=== PATIENT | female | born 1955 | race American Indian/Alaskan Native ===

== ENCOUNTER 2019-09-11 07:25 | Observation (INO) | payer BC ==
--- NOTE | 2019-09-11 08:06 | XRay Report ---
CHEST 2 VIEWS INDICATION / CLINICAL INFORMATION: Chest Pain. COMPARISON: None available. FINDINGS: SUPPORT DEVICES: None. HEART / MEDIASTINUM: Heart is upper normal size. LUNGS / PLEURA: No significant pulmonary or pleural abnormality. No pneumothorax. ADDITIONAL FINDINGS: No significant additional findings. IMPRESSION: 1. No acute findings. Signer Name: Farnaz Fuller MD Signed: 09/11/2019 8:01 AM Workstation Name: [id number]
[2019-09-11 08:09] LABS: Basophils % (Auto) 0.5 % (0.0-1.8); Eosinophils # (Auto) 0.3 K/mm3 (0.0-0.4); Eosinophils % (Auto) 3.5 % (0.0-4.3); Hematocrit 37.9 % (30.3-42.9); Hemoglobin 12.3 gm/dl (10.1-14.3); Lymphocytes # (Auto) 2.6 K/mm3 (1.2-5.4); Lymphocytes % (Auto) 32.9 % (13.4-35.0); Mean Corpuscular HGB Conc 33 % (30-34); Mean Corpuscular Volume 92 fl (79-97); Monocytes # (Auto) 0.4 K/mm3 (0.0-0.8); Platelet Count 221 K/mm3 (140-440); Red Blood Count 4.11 M/mm3 (3.65-5.03); Red Cell Distribution Width 14.9 % (13.2-15.2)
[2019-09-11 08:30] LABS: BUN/Creatinine Ratio 15; Blood Urea Nitrogen 12 mg/dL (7-17); Hemolysis Index 0
[2019-09-11] MEDS ORDERED: diphenhydrAMINE 25 MG CAP PO ONE (08:57)
[2019-09-11] MEDS ORDERED: ACETAMINOPHEN 325 MG/10.15 ML ORAL LIQD UNIT DOSE PO ONE (08:57)
--- NOTE | 2019-09-11 09:00 | Emergency Department Report ---
ED General Adult HPI - General Chief complaint: Chest Pain Stated complaint: CHEST PAIN/THROAT SORE Time Seen by Provider: 09/11/19 08:55 Source: patient Mode of arrival: Ambulatory Limitations: No Limitations - History of Present Illness Initial comments: 63-year-old -[place] female with a past medical history of hypertension presents to the emergency room complaining of chest pain since 5 AM. Patient reports chills but no fever no nausea no vomiting. Patient imaged nasal congestion sore throat and postnasal drip. Patient denies any ear pain. She does admit to body aches and cough. Patient reports that she takes lisinopril 20 mg daily. -: This morning Time: 05:00 Location: chest Radiation: non-radiation Severity scale (0 -10): 7 Quality: aching Consistency: intermittent Improves with: none Associated Symptoms: cough, fever/chills (on fever but chills). denies: headaches, loss of appetite, nausea/vomiting, shortness of breath, syncope Treatments Prior to Arrival: none - Related Data Home Medications Medication Instructions Recorded Confirmed Last Taken Amlodipine Besylate [Norvasc] 5 mg PO DAILY 09/11/19 09/11/19 1 Day Ago ~09/10/19 Gabapentin 100 mg PO DAILY 09/11/19 09/11/19 1 Day Ago ~09/10/19 Lisinopril [Zestril TAB] 40 mg PO QDAY 09/11/19 09/11/19 1 Day Ago ~09/10/19 Multivit-Min/Iron/Folic Acid/K 1 tab PO DAILY 09/11/19 09/11/19 1 Day Ago [Adults Multivitamin Tablet] ~09/10/19 hydroCHLOROthiazide [HCTZ] 12.5 mg PO QDAY 09/11/19 09/11/19 1 Day Ago ~09/10/19 Previous Rx's Medication Instructions Recorded Last Taken Type AtorvaSTATin [Lipitor] 40 mg PO QHS #30 tablet 09/13/19 Unknown Rx Pantoprazole [Protonix TAB] 40 mg PO DAILY #30 tablet 09/13/19 Unknown Rx Allergies Allergy/AdvReac Type Severity Reaction Status Date / Time No Known Allergies Allergy Verified 09/11/19 12:46 ED Review of Systems ROS: Stated complaint: CHEST PAIN/THROAT SORE Other details as noted in HPI Comment: All other systems reviewed and negative Constitutional: chills. denies: diaphoresis, fever, weakness ENT: throat pain, congestion Respiratory: cough Cardiovascular: chest pain (with cough) Endocrine: no symptoms reported Gastrointestinal: denies: abdominal pain, nausea, diarrhea Genitourinary: denies: urgency, dysuria, discharge ED Past Medical Hx - Past Medical History Hx Hypertension: Yes - Surgical History Additional Surgical History: CSECTIONS - Social History Smoking Status: Never Smoker Substance Use Type: Alcohol - Medications Home Medications: Home Medications Medication Instructions Recorded Confirmed Last Taken Type Amlodipine Besylate [Norvasc] 5 mg PO DAILY 09/11/19 09/11/19 1 Day Ago History ~09/10/19 Gabapentin 100 mg PO DAILY 09/11/19 09/11/19 1 Day Ago History ~09/10/19 Lisinopril [Zestril TAB] 40 mg PO QDAY 09/11/19 09/11/19 1 Day Ago History ~09/10/19 Multivit-Min/Iron/Folic Acid/K 1 tab PO DAILY 09/11/19 09/11/19 1 Day Ago History [Adults Multivitamin Tablet] ~09/10/19 hydroCHLOROthiazide [HCTZ] 12.5 mg PO QDAY 09/11/19 09/11/19 1 Day Ago History ~09/10/19 AtorvaSTATin [Lipitor] 40 mg PO QHS #30 tablet 09/13/19 Unknown Rx Pantoprazole [Protonix TAB] 40 mg PO DAILY #30 tablet 09/13/19 Unknown Rx ED Physical Exam - General Limitations: No Limitations General appearance: alert, in no apparent distress - Head Head exam: Present: atraumatic, normocephalic - Eye Eye exam: Present: normal appearance - ENT ENT exam: Present: mucous membranes dry - Neck Neck exam: Present: normal inspection - Respiratory Respiratory exam: Present: normal lung sounds bilaterally. Absent: respiratory distress, chest wall tenderness - Cardiovascular Cardiovascular Exam: Present: regular rate, normal rhythm. Absent: systolic murmur, diastolic murmur, rubs, gallop - GI/Abdominal GI/Abdominal exam: Present: soft, normal bowel sounds. Absent: distended, tenderness - Extremities Exam Extremities exam: Present: normal inspection - Back Exam Back exam: Present: normal inspection - Neurological Exam Neurological exam: Present: alert, oriented X3. Absent: normal gait - Psychiatric Psychiatric exam: Present: normal affect, normal mood - Skin Skin exam: Present: warm, dry, intact, normal color. Absent: rash ED Course Vital Signs 09/11/19 09/11/19 09/11/19 07:26 08:26 08:31 Temperature 97.7 F Pulse Rate 63 65 Respiratory 22 16 19 Rate Blood Pressure 159/64 143/49 O2 Sat by Pulse 98 99 Oximetry 09/11/19 09/11/19 09/11/19 09:01 09:31 10:01 Temperature Pulse Rate 86 57 L 63 Respiratory 20 16 13 Rate Blood Pressure 146/58 134/50 119/56 O2 Sat by Pulse 95 94 93 Oximetry 09/11/19 09/11/19 09/11/19 10:30 11:01 11:31 Temperature Pulse Rate 70 58 L 74 Respiratory 14 15 16 Rate Blood Pressure 142/63 145/57 135/53 O2 Sat by Pulse 96 96 96 Oximetry 09/11/19 09/11/19 09/11/19 12:01 12:31 13:01 Temperature Pulse Rate 70 76 98 H Respiratory 16 19 17 Rate Blood Pressure 144/63 173/62 145/60 O2 Sat by Pulse 99 97 97 Oximetry 09/11/19 09/11/19 09/11/19 13:31 14:01 14:21 Temperature Pulse Rate 76 81 72 Respiratory 24 19 16 Rate Blood Pressure 160/60 163/68 168/76 O2 Sat by Pulse 92 93 94 Oximetry 09/11/19 09/11/19 14:31 14:41 Temperature Pulse Rate 71 66 Respiratory 22 17 Rate Blood Pressure 132/59 132/59 O2 Sat by Pulse 93 93 Oximetry ED Medical Decision Making - Lab Data Result diagrams: 09/11/19 07:58 09/11/19 07:58 - Radiology Data Radiology results: report reviewed Patient: NORMA GRANADOS MR#: [id number] : 1955 Acct:[id number] Age/Sex: 63 / F ADM Date: 09/11/19 Loc: ED Attending Dr: Ordering Physician: ED MD PASTORA Date of Service: 09/11/19 Procedure(s): XR chest routine 2V Accession Number(s): [id number] cc: ED MD PASTORA Fluoro Time In Minutes: CHEST 2 VIEWS INDICATION / CLINICAL INFORMATION: Chest Pain. COMPARISON: None available. FINDINGS: SUPPORT DEVICES: None. HEART / MEDIASTINUM: Heart is upper normal size. LUNGS / PLEURA: No significant pulmonary or pleural abnormality. No pneumothorax. ADDITIONAL FINDINGS: No significant additional findings. IMPRESSION: 1. No acute findings. Signer Name: Farnaz Fuller MD Signed: 09/11/2019 8:01 AM Workstation Name: [id number] Transcribed By: DT Dictated By: Norris Fuller MD Electronically Authenticated By: Norris Fuller MD Signed Date/Time: 09/11/19800 DD/ 0 TD/TT: - Medical Decision Making 63-year-old -[place] female with a past medical history of hypertension presents to the emergency room complaining of chest pain since 5 AM. Patient reports chills but no fever no nausea no vomiting. Patient imaged nasal congestion sore throat and postnasal drip. Patient denies any ear pain. She does admit to body aches and cough. Patient reports that she takes lisinopril 20 mg daily. X-ray shows no acute abnormalities, CBC CMP within normal limits. Negative troponin. One troponin pending. Patient be given acetaminophen and Benadryl for symptoms. Critical care attestation.: If time is entered above; I have spent that time in minutes in the direct care of this critically ill patient, excluding procedure time. ED Disposition Clinical Impression: Atypical chest pain Disposition: OP ADMIT IP TO THIS HOSP Is pt being admited?: Yes Does the pt Need Aspirin: Yes Condition: Stable
[2019-09-11 12:23] LABS: INR 1.04 (0.87-1.13)
[2019-09-11 12:24] LABS: Partial Thromboplastin Time 31.5 Sec. (24.2-36.6)
--- NOTE | 2019-09-11 12:47 | History and Physical Report ---
History of Present Illness Date of admission: 09/11/19 11:44 Chief complaint: My chest hurts, I feel short of breath, and my legs are swollen History of present illness: 63 YO Female with MO, Obesity Hypoventilation Syndrome, HTN presents to ED for evaluation. Pt states that she has experienced pain in her chest over the past 1 day. Pt reports that pain awoke her from sleep around 0500hrs. Pt states that pain isn 7/10, substernal, achy, crushing in nature, dull, intermittent, worsened with exertion, relieved with rest. Pt acknowledges shortness of breath, decreased exercise tolerance, Dypsnea on Exertion, Dypsnea at rest, leg edema, Orthopnea/PND. Pt transported to [facility] via private vehicle. Pt seen and evaluated in ED and found to have symptoms consistent with CHF Decompensation, Angina. Pt admitted to telemetry. Cardiology team consulted in ED. Pt denies fever, chills, productive cough, syncope, hemoptysis, BRBPR, Individual/Family history of DVT/PE/Bleeding/Blood Clotting Disorders, Skin Rash, or recent ill contacts. No prior admission for review. All listed medication reconciled at time of admission. Past History Past Medical History: other (see hpi) Past Surgical History: Social history: , lives with family. denies: smoking, alcohol abuse, prescription drug abuse Family history: diabetes, hypertension Medications and Allergies Allergies Allergy/AdvReac Type Severity Reaction Status Date / Time No Known Allergies Allergy Verified 09/11/19 12:46 Active Meds: Active Medications Aspirin (Ecotrin) 325 mg PO QDAY GINNY Sodium Chloride (Sodium Chloride Flush Syringe 10 Ml) 10 ml IV PRN PRN PRN Reason: LINE FLUSH Review of Systems Constitutional: no weight loss, no weight gain, no fever, no chills Ears, nose, mouth and throat: no ear pain, no ear discharge, no tinnitis, no decreased hearing, no nose pain Breasts: no change in shape, no swelling, no mass Cardiovascular: chest pain, orthopnea, shortness of breath, dyspnea on exertion, paroxysmal nocturnal dyspnea, leg edema, decreased exercise tolerance, no rapid/irregular heart beat, no syncope Respiratory: no cough, no cough with sputum, no excessive sputum, no hemoptysis Gastrointestinal: no nausea, no vomiting, no diarrhea, no constipation, no change in bowel habits Genitourinary Female: no pelvic pain, no flank pain, no menorrhagia, no dysuria, no urinary frequency, no urgency Rectal: no pain, no incontinence, no bleeding Musculoskeletal: no neck pain, no shooting arm pain, no arm numbness/tingling, no low back pain, no shooting leg pain Integumentary: no rash, no pruritis, no redness, no sores, no wounds Neurological: no transient paralysis, no paralysis, no weakness, no parathesias, no numbness, no tingling Psychiatric: no memory loss, no change in sleep habits, no sleep disturbances, no insomnia, no hypersomnia, no change in appetite, no change in libido Endocrine: no cold intolerance, no heat intolerance, no polyphagia, no polydipsi a, no polyuria, no nocturia, no excessive sweating Hematologic/Lymphatic: no easy bruising, no easy bleeding, no lymphadenopathy, no lymphedema Allergic/Immunologic: no urticaria, no allergic rhinitis, no persistent infections, no anaphylaxis, no angioedema Exam - Constitutional Vitals: Temp Pulse Resp BP Pulse Ox 97.7 F 74 16 135/53 96 09/11/19 07:26 09/11/19 11:31 09/11/19 11:31 09/11/19 11:31 09/11/19 11:31 General appearance: Present: mild distress, obese - EENT Eyes: Present: PERRL ENT: hearing intact, clear oral mucosa - Neck Neck: Present: supple, normal ROM - Respiratory Respiratory effort: normal Respiratory: bilateral: diminished, rhonchi - Cardiovascular Heart Sounds: Present: S1 & S2. Absent: rub, click - Extremities Extremities: pulses symmetrical Extremity abnormal: edema Peripheral Pulses: within normal limits - Abdominal General gastrointestinal: Present: soft, non-tender, non-distended, normal bowel sounds Female genitourinary: Present: normal - Integumentary Integumentary: Present: clear, warm, dry - Musculoskeletal Musculoskeletal: gait normal, strength equal bilaterally - Psychiatric Psychiatric: appropriate mood/affect, intact judgment & insight - Neurologic Neurologic: CNII-XII intact, moves all extremities Results - Labs CBC & Chem 7: 09/11/19 07:58 09/11/19 07:58 Labs: Abnormal lab results 11/03/19 11/03/19 Range/Units 07:58 11:47 D-Dimer 245.94 H (0-234) ng/mlDDU Chloride 108.0 H (98-107) mmol/L Assessment and Plan - Patient Problems (1) CHF (congestive heart failure) Current Visit: Yes Status: Acute Qualifiers: Heart failure type: systolic Heart failure chronicity: acute Qualified Code(s): I50.21 - Acute systolic (congestive) heart failure Plan to address problem: Admit to telemetry, Cardiology consulted, thyroid panel, magnesium level, strict I/O, daily weight, diuresis, Chest x ray, Echo, afterload reduction, bnp, d dimer, supplemental oxygen, pulse oximetry. (2) Angina at rest Current Visit: Yes Status: Acute Plan to address problem: Serial cardiac enzymes, ekg, stress test, cardiology consulted in ED. (3) Obesity hypoventilation syndrome Current Visit: Yes Status: Acute Plan to address problem: supplemental oxygen, nebulizer therapy, NIPPV as clinically indicated, pulse oximetry (4) HTN (hypertension) Current Visit: Yes Status: Acute Qualifiers: Hypertension type: essential hypertension Qualified Code(s): I10 - Essential (primary) hypertension Plan to address problem: Monitor uop q shift, continue medical management (5) DVT prophylaxis Current Visit: Yes Status: Acute Plan to address problem: SCD to BLE while in bed, prophylactic lovenox
[2019-09-11] MEDS ORDERED: NITROGLYCERIN 0.4 MG TAB SUBL SL PRN (13:30)
[2019-09-11] MEDS ORDERED: MORPHINE 2 MG/1 ML INJ IV PRN (13:32)
[2019-09-11] MEDS ORDERED: oxyCODONE /ACETAMINOPHEN 5-325MG TAB PO PRN (13:32)
[2019-09-11] MEDS ORDERED: LORazepam 2 MG/ML VIAL ONE (13:52)
[2019-09-11] MEDS ORDERED: PANTOPRAZOLE 20 MG TAB PO ONE (13:53)
[2019-09-11] MEDS: PANTOPRAZOLE 40 MG TAB PO SCH ×2 (14:11→21:25)
[2019-09-11] MEDS ORDERED: LORazepam 2 MG/ML VIAL IV ONE (14:32)
[2019-09-11 16:19] LABS: Chol/HDL Ratio 2.68 %
[2019-09-11 16:31] LABS: Free T4 (Free Thyroxine) 0.85 ng/dL (0.76-1.46)
[2019-09-11] MEDS: ENOXAPARIN 40 MG/0.4 ML INJ SUB-Q SCH (21:25)
[2019-09-12] MEDS ORDERED: REGADENOSON 0.4 MG/5 ML INJ IV ONE (07:11)
--- NOTE | 2019-09-12 11:54 | Progress Note ---
Assessment and Plan Assessment and plan: Acute systolic HF. Cardiology consult pending Chest pain. Cardiac isoenzymes. Follow-up stress test. Obesity hypoventilation syndrome. Continue supplemental oxygen, nebulizer treatment and BiPAP as clinically indicated. Hypertension. Continue antihypertensive medications. History Interval history: No new issues overnight Hospitalist Physical - Constitutional Vitals: Temp Pulse Resp BP Pulse Ox 98.6 F 76 18 141/69 95 09/12/19 07:54 09/12/19 07:00 09/12/19 07:54 09/12/19 10:22 09/12/19 06:00 General appearance: Present: mild distress, obese - EENT Eyes: Present: PERRL, EOM intact ENT: hearing intact, clear oral mucosa, dentition normal - Neck Neck: Present: supple, normal ROM - Respiratory Respiratory effort: normal Respiratory: bilateral: CTA - Cardiovascular Rhythm: regular Heart Sounds: Present: S1 & S2. Absent: gallop, rub - Extremities Extremities: no ischemia, No edema, Full ROM - Abdominal General gastrointestinal: soft, non-tender, non-distended, normal bowel sounds - Integumentary Integumentary: Present: clear, warm, dry - Neurologic Neurologic: CNII-XII intact, moves all extremities Results - Labs CBC & Chem 7: 09/11/19 07:58 09/11/19 07:58 Labs: Laboratory Last Values WBC 7.9 K/mm3 (4.5-11.0) 09/11/19 07:58 RBC 4.11 M/mm3 (3.65-5.03) 09/11/19 07:58 Hgb 12.3 gm/dl (10.1-14.3) 09/11/19 07:58 Hct 37.9 % (30.3-42.9) 09/11/19 07:58 MCV 92 fl (79-97) 09/11/19 07:58 MCH 30 pg (28-32) 09/11/19 07:58 MCHC 33 % (30-34) 09/11/19 07:58 RDW 14.9 % (13.2-15.2) 09/11/19 07:58 Plt Count 221 K/mm3 (140-440) 09/11/19 07:58 Lymph % (Auto) 32.9 % (13.4-35.0) 09/11/19 07:58 [place] % (Auto) 5.0 % (0.0-7.3) 09/11/19 07:58 Eos % (Auto) 3.5 % (0.0-4.3) 09/11/19 07:58 Baso % (Auto) 0.5 % (0.0-1.8) 09/11/19 07:58 Lymph # 2.6 K/mm3 (1.2-5.4) 09/11/19 07:58 [place] # 0.4 K/mm3 (0.0-0.8) 09/11/19 07:58 Eos # 0.3 K/mm3 (0.0-0.4) 09/11/19 07:58 Baso # 0.0 K/mm3 (0.0-0.1) 09/11/19 07:58 Seg Neutrophils % 58.1 % (40.0-70.0) 09/11/19 07:58 Seg Neutrophils # 4.6 K/mm3 (1.8-7.7) 09/11/19 07:58 PT 13.5 Sec. (12.2-14.9) 09/11/19 11:47 INR 1.04 (0.87-1.13) 09/11/19 11:47 APTT 31.5 Sec. (24.2-36.6) 09/11/19 11:47 D-Dimer 245.94 ng/mlDDU (0-234) H 09/11/19 11:47 D-Dimer < 135.00 ng/mlDDU (0-234) 09/11/19 11:47 Sodium 143 mmol/L (137-145) 09/11/19 07:58 Potassium 4.1 mmol/L (3.6-5.0) 09/11/19 07:58 Chloride 108.0 mmol/L (98-107) H 09/11/19 07:58 Carbon Dioxide 23 mmol/L (22-30) 09/11/19 07:58 Anion Gap 16 mmol/L 09/11/19 07:58 BUN 12 mg/dL (7-17) 09/11/19 07:58 Creatinine 0.8 mg/dL (0.7-1.2) 09/11/19 07:58 Estimated GFR > 60 ml/min 09/11/19 07:58 BUN/Creatinine Ratio 15 % 09/11/19 07:58 Glucose 86 mg/dL (65-100) 09/11/19 07:58 POC Glucose 98 (70-105) 09/12/19 08:01 Calcium 9.0 mg/dL (8.4-10.2) 09/11/19 07:58 Troponin T < 0.010 ng/mL (0.00-0.029) 09/11/19 17:55 NT-Pro-B Natriuret Pep 91.90 pg/mL (0-900) 09/11/19 15:54 Triglycerides 129 mg/dL (2-149) 09/11/19 15:54 Cholesterol 185 mg/dL (50-199) 09/11/19 15:54 LDL Cholesterol Direct 98 mg/dL (50-130) 09/11/19 15:54 HDL Cholesterol 69 mg/dL (40-59) H 09/11/19 15:54 Cholesterol/HDL Ratio 2.68 % 09/11/19 15:54 TSH 1.890 mlU/mL (0.270-4.200) 09/11/19 15:54 Free T4 0.85 ng/dL (0.76-1.46) 09/11/19 15:54 Active Medications - Current Medications Current Medications: Generic Name Dose Route Start Last Admin Trade Name Freq PRN Reason Stop Dose Admin Aspirin 325 mg 09/12/19 10:00 Ecotrin PO QDAY [facility] Atorvastatin Calcium 40 mg 09/11/19 22:00 09/11/19 21:25 Lipitor PO 40 mg QHS [facility] Administration Enoxaparin Sodium 40 mg 09/11/19 22:00 09/11/19 21:25 Enoxaparin SUB-Q 40 mg QDAY@2200 [facility] Administration Morphine Sulfate 2 mg 09/11/19 13:32 09/11/19 18:03 Morphine IV 2 mg Q4H PRN Administration Pain , Severe (7-10) Nitroglycerin 0.4 mg 09/11/19 13:30 Nitrostat SL Q5M PRN Chest Pain Oxycodone/Acetaminophen 1 tab 09/11/19 13:32 Percocet 5/325 PO Q6H PRN Pain, Moderate (4-6) Pantoprazole Sodium 40 mg 09/11/19 13:00 09/11/19 21:25 Protonix PO 40 mg BID GINNY Administration Sodium Chloride 10 ml 09/11/19 12:43 Sodium Chloride Flush Syringe 10 Ml IV PRN PRN LINE FLUSH
[2019-09-12] MEDS: PANTOPRAZOLE 40 MG TAB PO SCH ×2 (11:57→21:54)
[2019-09-12] MEDS: ASPIRIN EC 325 MG TAB PO SCH (11:57)
--- NOTE | 2019-09-12 13:06 | Consultation ---
History of Present Illness Consult date: 09/12/19 Consult reason: chest pain History of present illness: 63-year-old woman with morbid obesity, chronic hypertension and chronic tobacco use, is admitted to the hospital with atypical chest pain. She describes chest pain that woke her up from sleep, otherwise poorly characterized, nonexertional. There was no associated shortness of breath or dizziness or palpitations. There is no lower extremity edema or orthopnea or PND. No prior significant cardiac history. ECG is normal sinus rhythm, normal ECG. Serial cardiac isoenzymes were normal. Today, she underwent a Lexiscan thallium stress test, the results of which are pending. Past History Past Medical History: COPD, hypertension, other (tobacco abuse) Past Surgical History: Social history: , lives with family. denies: smoking, alcohol abuse, prescription drug abuse Family history: diabetes, hypertension Medications and Allergies Allergies Allergy/AdvReac Type Severity Reaction Status Date / Time No Known Allergies Allergy Verified 09/11/19 12:46 Home Medications Medication Instructions Recorded Confirmed Last Taken Type Amlodipine Besylate [Norvasc] 5 mg PO DAILY 09/11/19 09/11/19 1 Day Ago History ~09/10/19 Gabapentin 100 mg PO DAILY 09/11/19 09/11/19 1 Day Ago History ~09/10/19 Lisinopril [Zestril TAB] 40 mg PO QDAY 09/11/19 09/11/19 1 Day Ago History ~09/10/19 Multivit-Min/Iron/Folic Acid/K 1 tab PO DAILY 09/11/19 09/11/19 1 Day Ago History [Adults Multivitamin Tablet] ~09/10/19 hydroCHLOROthiazide [Hctz] 12.5 mg PO QDAY 09/11/19 09/11/19 1 Day Ago History ~09/10/19 Active Meds: Active Medications Aspirin (Ecotrin) 325 mg PO QDAY [facility] Last Admin: 09/12/19 11:57 Dose: 325 mg Documented by: Atorvastatin Calcium (Lipitor) 40 mg PO QHS [facility] Last Admin: 09/11/19 21:25 Dose: 40 mg Documented by: Enoxaparin Sodium (Enoxaparin) 40 mg SUB-Q QDAY@2200 [facility] Last Admin: 09/11/19 21:25 Dose: 40 mg Documented by: Morphine Sulfate (Morphine) 2 mg IV Q4H PRN PRN Reason: Pain , Severe (7-10) Last Admin: 09/11/19 18:03 Dose: 2 mg Documented by: Nitroglycerin (Nitrostat) 0.4 mg SL Q5M PRN PRN Reason: Chest Pain Oxycodone/Acetaminophen (Percocet 5/325) 1 tab PO Q6H PRN PRN Reason: Pain, Moderate (4-6) Last Admin: 09/12/19 11:57 Dose: 1 tab Documented by: Pantoprazole Sodium (Protonix) 40 mg PO BID GINNY Last Admin: 09/12/19 11:57 Dose: 40 mg Documented by: Sodium Chloride (Sodium Chloride Flush Syringe 10 Ml) 10 ml IV PRN PRN PRN Reason: LINE FLUSH Review of Systems Cardiovascular: chest pain, no orthopnea, no palpitations, no rapid/irregular heart beat, no edema, no syncope, no lightheadedness, no shortness of breath Physical Examination Vital Signs Temp Pulse Resp BP Pulse Ox 97.7 F 63 22 159/64 98 09/11/19 07:26 09/11/19 07:26 09/11/19 07:26 09/11/19 07:26 09/11/19 07:26 General appearance: no acute distress HEENT: Positive: PERRL Neck: Positive: neck supple Cardiac: Positive: Reg Rate and Rhythm Lungs: Positive: Decreased Breath Sounds Neuro: Positive: Grossly Intact Abdomen: Positive: Soft Female genitourinary: deferred Skin: Positive: Clear Extremities: Absent: edema Results 09/11/19 07:58 09/11/19 07:58 Lipids 09/11/19 Range/Units 15:54 Triglycerides 129 (2-149) mg/dL Cholesterol 185 (50-199) mg/dL HDL Cholesterol 69 H (40-59) mg/dL Cholesterol/HDL Ratio 2.68 % EKG interpretations - Telemetry EKG Rhythm: Sinus Rhythm Assessment and Plan - Patient Problems (1) Atypical chest pain Current Visit: Yes Status: Acute Plan to address problem: 63-year-old woman with obesity and multiple risk factors, presents with atypical chest pain. ECG and cardiac enzymes are normal. Lexiscan thallium stress test has been completed, results are pending.
[2019-09-12] MEDS: ENOXAPARIN 40 MG/0.4 ML INJ SUB-Q SCH (21:54)
--- NOTE | 2019-09-13 00:56 | Treadmill Report ---
THALLIUM STRESS TEST LEFT VENTRICLE: Left ventricular chamber size is within normal spread. Perfusion study demonstrates homogeneous uptake of the tracer in all segments, no significant defects identified. Gated analysis demonstrates normal left ventricular systolic function, ejection fraction 63%. CONCLUSION: Normal myocardial perfusion study. JOB# [id number] CA/NTS
[2019-09-13 04:17] VITALS: BP 129/48
[2019-09-13] MEDS: ASPIRIN EC 325 MG TAB PO SCH (10:42)
[2019-09-13] MEDS: PANTOPRAZOLE 40 MG TAB PO SCH (10:42)
--- NOTE | 2019-09-13 11:04 | Discharge Summary ---
Providers - Providers Date of Admission: 09/11/19 11:44 Date of discharge: 09/13/19 Attending physician: YOSEF LINARES MD 09/11/19 Consult to Cardiac Rehabilitation [CONS] Routine Reason For Exam: Phase I 09/11/19 12:45 Consult to Cardiology [CONS] Routine Consulting Provider: ULISES MONTENEGRO Reason For Exam: angina Primary care physician: HAND DRAWER IN Hospitalization Reason for admission: Chest pain Condition: Stable Hospital course: 63 YO Female with MO, Obesity Hypoventilation Syndrome, HTN presents to ED for evaluation. Pt states that she has experienced pain in her chest over the past 1 day. Pt reports that pain awoke her from sleep around 0500hrs. Pt states that pain isn 7/10, substernal, achy, crushing in nature, dull, intermittent, worsened with exertion, relieved with rest. Pt acknowledges shortness of breath, decreased exercise tolerance, Dypsnea on Exertion, Dypsnea at rest, leg edema, Orthopnea/PND. Pt transported to [facility] via private vehicle. Pt seen and evaluated in ED and found to have symptoms consistent with CHF Decompensation, Angina. Pt admitted to telemetry. Cardiology team consulted in ED. Patient was admitted to the floor and serial troponins were negative, EKG NAF, thallium stress test was done was negative and discharged home in a stable condition. Appropriate medication scripts were given at the time of discharge. Patient advised to continue home medications and have follow-up with primary care physician. Disposition: DC-01 TO HOME OR SELFCARE Time spent for discharge: 32 minutes - Discharge Diagnoses (1) Atypical chest pain Status: Acute (2) HTN (hypertension) Status: Acute Qualifiers: Hypertension type: essential hypertension Qualified Code(s): I10 - Essential (primary) hypertension (3) Obesity hypoventilation syndrome Status: Acute Core Measure Documentation - Palliative Care Palliative Care/ Comfort Measures: Not Applicable - Core Measures Any of the following diagnoses?: none Exam - Physical Exam Narrative exam: Not in cardiopulmonary distress. The patient is morbidly obese. Vital signs as documented. Head exam is unremarkable. No scleral icterus . Neck is without jugular venous distension, thyromegaly, or carotid bruits. Lungs are clear to auscultation. Cardiac exam reveals regular rate and Rhythm. Abdominal exam reveals normal bowel sounds, nontender, no organomegaly. Extremities are nonedematous and both femoral and pedal pulses are normal. STAMP MOUNTER: Alert and oriented 3. No focal weakness. - Constitutional Vitals: Temp Pulse Resp BP Pulse Ox 98.7 F 65 18 129/48 95 09/13/19 03:36 09/13/19 04:00 09/13/19 03:36 09/13/19 03:36 09/13/19 04:00 Plan Activity: no restrictions Weight Bearing Status: Full Weight Bearing Diet: low cholesterol, low salt Follow up with: PRIMARY CARE, [Primary Care Provider] - 7 Days Forms: Work/School Release Form Prescriptions: AtorvaSTATin [Lipitor] 40 mg PO QHS #30 tablet Pantoprazole [Protonix TAB] 40 mg PO DAILY #30 tablet
--- NOTE | 2019-09-13 11:08 | Progress Note ---
Assessment and Plan Atypical chest pain normal myocardial stress thallium test Morbid obesity Chronic hypertension Chronic tobacco use No further cardiac workup indicated. We will sign off. Subjective Date of service: 09/13/19 Interval history: Patient denies chest pain and shortness of breath. Objective Vital Signs Temp Pulse Resp BP BP Pulse Ox 09/13/19 04:00 65 95 09/13/19 03:36 98.7 F 18 129/48 09/12/19 23:45 20 09/12/19 23:10 98.2 F 65 18 146/64 97 09/12/19 20:40 65 09/12/19 19:29 98.3 F 71 18 136/50 94 09/12/19 15:30 98.2 F 78 18 136/74 99 09/12/19 15:00 80 09/12/19 12:57 20 09/12/19 11:57 20 09/12/19 11:48 97.8 F 18 187/67 - Physical Examination General: No Apparent Distress HEENT: Positive: PERRL Neck: Positive: trachea midline Cardiac: Positive: Reg Rate and Rhythm Lungs: Positive: Normal Breath Sounds Neuro: Positive: Grossly Intact Abdomen: Positive: Soft Extremities: Absent: edema
== END 2019-09-13 13:02 | disposition home or self-care (01) ==
LOC: ED 07:25 → INTOOBSV 11:44 → 4A 11:44 → OBSVTOIN 11:44 → 4A 12:49
PROVIDERS: ADMIT Internal Medicine; ATTEND Internal Medicine
DX: I11.0 Hypertensive heart disease with heart failure (principal); I50.21 Acute systolic (congestive) heart failure; I20.9 Angina pectoris, unspecified; E66.2 Morbid (severe) obesity with alveolar hypoventilation; Z68.43 Body mass index [BMI] 50.0-59.9, adult; Z98.891 History of uterine scar from previous surgery; Z79.82 Long term (current) use of aspirin
CPT/HCPCS: 36415; 71046; 78452; 80048; 80061; 82962; 83880; 84439; 84443; 84484; 85025; 85379; 85610; 85730; 93005; 93010; 93017; 94660; 96372; 96374; 96375; 99284; A9270; A9502; G0378; J1650; J2060; J2270; J2785; 96365

== ENCOUNTER 2019-10-14 06:03 | Day surgery (SDC) | payer BC ==
[2019-10-14] MEDS ORDERED: SODIUM CHLORIDE 0.9% 500 ML 500 ML IV SCH (07:00)
[2019-10-14] MEDS ORDERED: ASPIRIN EC 325 MG TAB PO NR (07:00)
[2019-10-14] MEDS ORDERED: ASPIRIN EC 325 MG TAB PO ONE (07:23)
[2019-10-14] MEDS ORDERED: SODIUM CHLORIDE 0.9% 500 ML 500 ML ONE (07:23)
[2019-10-14 08:08] LABS: INR 0.96 (0.87-1.13)
[2019-10-14] MEDS ORDERED: VERAPAMIL 5 MG/2 ML INJ ONE (08:13)
[2019-10-14] MEDS ORDERED: HEPARIN/NS 5000 UNIT/500ML 1,000 ML IR ONE (08:13)
[2019-10-14 08:35] LABS: Basophils % (Auto) 0.5 % (0.0-1.8); Eosinophils # (Auto) 0.2 K/mm3 (0.0-0.4); Eosinophils % (Auto) 2.5 % (0.0-4.3); Hematocrit 37.9 % (30.3-42.9); Hemoglobin 12.3 gm/dl (10.1-14.3); Lymphocytes # (Auto) 2.3 K/mm3 (1.2-5.4); Lymphocytes % (Auto) 30.5 % (13.4-35.0); Mean Corpuscular HGB Conc 33 % (30-34); Mean Corpuscular Volume 92 fl (79-97); Monocytes # (Auto) 0.3 K/mm3 (0.0-0.8); Monocytes % (Auto) 4.4 % (0.0-7.3); Platelet Count 254 K/mm3 (140-440); Red Blood Count 4.12 M/mm3 (3.65-5.03); Red Cell Distribution Width 15.4 % (13.2-15.2)
[2019-10-14 08:41] LABS: BUN/Creatinine Ratio 16; Blood Urea Nitrogen 11 mg/dL (7-17); Calcium 9.2 mg/dL (8.4-10.2); Hemolysis Index 19
[2019-10-14] MEDS: LIDOCAINE (2%) 20 MG/1 ML VIAL 20 ML MDV INFILTRATI ONE ×2 (09:01→09:19)
[2019-10-14] MEDS: fentaNYL 100 MCG/2 ML INJ ONE ×3 (09:01→09:35)
[2019-10-14] MEDS: MIDAZOLAM 2 MG/2 ML INJ ONE ×2 (09:01→09:18)
[2019-10-14] MEDS: NITROGLYCERIN SYRINGE 3 ML ONE ×2 (09:02→09:20)
[2019-10-14] MEDS: HEPARIN 10,000 UNITS/10 ML VIAL ONE ×2 (09:02→09:20)
[2019-10-14] MEDS ORDERED: NITROGLYCERIN 0.4 MG TAB SUBL SL ONE (09:32)
--- NOTE | 2019-10-14 10:09 | Short Stay Summary ---
Short Stay Documentation Date of service: 10/14/19 - History H&P: obtained from office - Allergies and Medications Current Medications: Allergies No Known Allergies Allergy (Verified 09/11/19 12:46) Home Medications Medication Instructions Recorded Confirmed Last Taken Type Amlodipine Besylate [Norvasc] 5 mg PO DAILY 09/11/19 10/13/19 10/13/19 History Gabapentin 100 mg PO DAILY 09/11/19 10/13/19 10/13/19 History Lisinopril [Zestril TAB] 40 mg PO QDAY 09/11/19 10/13/19 10/13/19 History Multivit-Min/Iron/Folic Acid/K 1 tab PO DAILY 09/11/19 10/13/19 10/13/19 History [Adults Multivitamin Tablet] hydroCHLOROthiazide [HCTZ] 12.5 mg PO QDAY 09/11/19 10/13/19 10/13/19 History AtorvaSTATin [Lipitor] 20 mg PO QHS 10/13/19 10/13/19 10/13/19 History Active Medications Sodium Chloride (Nacl 0.9% 500 Ml) 500 mls @ 50 mls/hr IV DIRECT GINNY Stop: 10/14/19 16:59 Last Admin: 10/14/19 08:15 Dose: 50 mls/hr Documented by: - Physical exam General appearance: no acute distress Integumentary: no rash HEENT: Atraumatic Lungs: Clear to auscultation Breasts: deferred Heart: Regular rate Gastrointestinal: normal Female Genitourinary: deferred Rectal Exam: deferred Extremities: no ischemia Neurological: Normal gait - Brief post op/procedure progress note Date of procedure: 10/14/19 Pre-op diagnosis: Shortness of breath Post-op diagnosis: same Procedure: LHC and LV gram Anesthesia: MAC Findings: See report Surgeon: ADEN BARRERA Estimated blood loss: none Pathology: none Condition: stable - Hospital course Hospital course: Uneventful - Disposition Condition at discharge: Good Disposition: DC-01 TO HOME OR SELFCARE Short Stay Discharge Plan Activity: advance as tolerated Weight Bearing Status: Weight Bear as Tolerated Diet: low fat, low cholesterol, low salt Wound: keep clean and dry Follow up with: MARTA KOROMA MD [Primary Care Provider] - 7 Days
--- NOTE | 2019-10-14 11:41 | Cardiac Catherization Report ---
INDICATION FOR PROCEDURE: Shortness of breath. ORDERING PHYSICIAN: Alexandr Julian MD PROCEDURES PERFORMED: 1. Selective left and right coronary angiography. 2. Left ventriculography. DESCRIPTION OF PROCEDURE: After obtaining the consent, the patient was draped using sterile technique. A 2% lidocaine was injected into the right wrist. A 6-Ethiopian vascular sheath was inserted into the right radial artery. A 5-Ethiopian JL3.5 catheter was used to selectively engage left coronary artery. A 5-Ethiopian JR4 catheter was used to selectively engage the right coronary artery. A 5-Ethiopian JR4 catheter was used to hand inject the left ventriculogram. No complications occurred during the procedure. Hemostasis was achieved at the end of the procedure using manual pressure. SPECIMEN REMOVED: None. ESTIMATED BLOOD LOSS: Minimal. TOTAL SEDATION ADMINISTERED: 1 mg of IV Versed and 25 mg of IV fentanyl. PHYSICIAN AND PATIENT FACE TO FACE SEDATION START TIME: 9:18 a.m. PHYSICIAN AND PATIENT FACE TO FACE SEDATION STOP TIME: 9:37 a.m. TOTAL SEDATION TIME: 19 minutes. FINDINGS: HEMODYNAMICS: Aortic pressure is 128/76, LV systolic pressure is 129 mmHg, LV end diastolic pressure is 22 mmHg. There was no significant gradient noted across the left ventricular outflow tract. CARDIAC STRUCTURES: The left ventricle is normal in size. The left ventricular ejection fraction is estimated at 55%. No regional wall motion abnormality detected. CORONARY ANATOMY: 1. This is a right dominant circulation. 2. The left main is angiographically normal. 3. The left anterior descending artery is angiographically normal. 4. The left circumflex artery is angiographically normal. 5. The right coronary artery could not be selectively engaged with the JR4 due to the patient having severe radial spasm. However, nonselective injection revealed no evidence of obstructive coronary artery disease within the right coronary artery. IMPRESSION: 1. Angiographically normal coronary circulation. 2. Normal left ventricular size and systolic function. 3. LVEDP measured at 22 mmHg. RECOMMENDATION: Follow up with referring cider press operator. JOB# [id number] CARMELITA/JULIANA
[2019-10-14 12:04] VITALS: BP 132/72
== END 2019-10-14 12:45 | disposition home or self-care (01) ==
LOC: CATHLABREC 06:03
PROVIDERS: ATTEND Internal Medicine Cardiovascular Disease
DX: R06.02 Shortness of breath (principal); I20.8 Other forms of angina pectoris; I11.0 Hypertensive heart disease with heart failure; I50.9 Heart failure, unspecified; E66.2 Morbid (severe) obesity with alveolar hypoventilation; E78.00 Pure hypercholesterolemia, unspecified; J44.9 Chronic obstructive pulmonary disease, unspecified; K21.9 Gastro-esophageal reflux disease without esophagitis; F41.9 Anxiety disorder, unspecified; Z79.899 Other long term (current) drug therapy; Z68.43 Body mass index [BMI] 50.0-59.9, adult; Z87.891 Personal history of nicotine dependence; Z98.890 Other specified postprocedural states
CPT/HCPCS: 36415; 80048; 85025; 85610; 85730; 93005; 93010; 93458; 99156; C1894; J1644; J2250; J3010; J7040; Q9967

== ENCOUNTER 2020-01-04 16:13 | Emergency (ER) | payer BC ==
[2020-01-04 18:21] VITALS: BP 135/69
--- NOTE | 2020-01-04 18:38 | Event Note ---
ED Screening Note Date of service: 01/04/20 Time: 18:32 ED Screening Note: 64 y o female presents to ED cc of upper resp symptoms such as cough, congestion, throat pain and runny nose she denies fever ,chills, n.v.d NOSE: Nose symetrical, Nontender,Nares appeared normal. MOUTH:Mouth is well hydrated and without lesions. Tonsils nonerythematous or swollen, Uvula midline, Tongue not elevated. Mucous membranes are moist. Posterior pharynx clear, no exudate or lesions. Patent airways. NECK: Supple. Non edematous, No carotid bruits. No lymphadenopathy or thyromegaly. No C-spine tenderness LUNGS: Symetrical with respiration, No wheezing, no rales or crackles, CTAB. HEART: S1, S2 present, regular rate and rhythm without murmur, no rubs, no gallops. Non tender to palpation Initial orders include: Pt presents with a non-medical emergency Examination is normal, Vital sign are stable Pt given information for clinics to follow up with pcp for further treatment and evaluation Also discussed strict return precautions in detail with pt who verbalized understanding Discussed continue Tylenol and Motrin as needed for fever and pain. Discussed increase fluids and diet intake. Discussed rest much needed. Discussed daily vitamin C for immune booster. Discussed follow-up with pcp in 3-5 days. Patient verbally states she understands and will comply the following instructions and follow-up Vital signs stable. Patient is in no acute distress
== END 2020-01-04 19:04 | disposition left against medical advice (07) ==
LOC: ED 16:13
DX: R05 Cough (principal); R07.0 Pain in throat; R09.89 Other specified symptoms and signs involving the circulatory and respiratory systems; Z53.21 Procedure and treatment not carried out due to patient leaving prior to being seen by health care provider
CPT/HCPCS: 99281

== ENCOUNTER 2020-03-19 11:13 | Emergency (ER) | payer BC ==
[2020-03-19 12:29] LABS: Bacteria,Urine 1+ /HPF (Negative); Bilirubin,Urine NEG (Negative); Blood,Urine MOD (Negative); Color,Urine Amber (Yellow); Hyaline Casts,Urine 71 /LPF; Mucus,Urine 1+ /HPF
[2020-03-19 12:30] LABS: WBC,Urine > 182.0 /HPF (0.0-6.0)
--- NOTE | 2020-03-19 13:28 | Emergency Department Report ---
ED Back Pain/Injury HPI - General Chief Complaint: Back Pain/Injury Stated Complaint: LOWER BACK PAIN Time Seen by Provider: 03/19/20 11:43 Source: patient Limitations: No Limitations - History of Present Illness Initial Comments: This is a 64-year-old female who presents to the ED complaining of lower back pain x3 days. She describes pain as a aching type pain with no radiation elsewhere which is localized to her bilateral lower back. Patient states she does a lot of lifting and bending for work. Patient also admits some pressure type feeling with urination. Patient does note that she has a history of 2 slipped disc in the past. Patient states she is only taking medication for blood pressure and no other medications. Patient denies any abdominal pain, shortness of breath, chest pain, fever, nausea vomiting MD Complaint: back pain Similar Symptoms Previously: Yes Place: work Radiation: none Severity: moderate Severity scale (0 -10): 8 Quality: aching Worsens With: immobilization, movement Associated Symptoms: denies other symptoms - Related Data Home Medications Medication Instructions Recorded Confirmed Last Taken Amlodipine Besylate [Norvasc] 5 mg PO DAILY 09/11/19 10/13/19 10/13/19 Gabapentin 100 mg PO DAILY 09/11/19 10/13/19 10/13/19 Multivit-Min/Iron/Folic Acid/K 1 tab PO DAILY 09/11/19 10/13/19 10/13/19 [Adults Multivitamin Tablet] hydroCHLOROthiazide [HCTZ] 12.5 mg PO QDAY 09/11/19 10/13/19 10/13/19 lisinopriL [Zestril TAB] 40 mg PO QDAY 09/11/19 10/13/19 10/13/19 AtorvaSTATin [Lipitor] 20 mg PO QHS 10/13/19 10/13/19 10/13/19 Previous Rx's Medication Instructions Recorded Last Taken Type Ketorolac [Toradol] 10 mg PO Q6H PRN #15 tablet 03/19/20 Unknown Rx Sulfamethoxazole/Trimethoprim 1 each PO BID #20 tablet 03/19/20 Unknown Rx [Bactrim DS TAB] Allergies Allergy/AdvReac Type Severity Reaction Status Date / Time No Known Allergies Allergy Verified 09/11/19 12:46 ED Review of Systems ROS: Stated complaint: LOWER BACK PAIN Other details as noted in HPI Comment: All other systems reviewed and negative ED Past Medical Hx - Past Medical History Chronic back pain ED Back Pain Physical Exam - Exam General: Vital signs noted. No distress. Alert and acting appropriately. Back/Abdomen: Yes Perilumbar Tenderness (To palpation of the lower latissimus dorsi muscles of the back., No midline lumbar spinal tenderness), No Abdominal Tenderness, No Perithoracic Tenderness, No Sacroiliac Tenderness, No Flank Tenderness, No Straight Leg Raise Pain Neuro: Yes Normal Sensation, Yes Normal DTR's, Yes Normal Gait, No Motor Weakness ED Course Vital Signs 03/19/20 11:26 Temperature 98.6 F Pulse Rate 84 Respiratory 18 Rate Blood Pressure 106/52 O2 Sat by Pulse 100 Oximetry Ed Back Pain Tests - Tests Tests: Abnormal UA ED Medical Decision Making - Lab Data Laboratory Last Values Urine Color Ann (Yellow) 03/19/20 12:15 Urine Turbidity Cloudy (Clear) 03/19/20 12:15 Urine pH 5.0 (5.0-7.0) 03/19/20 12:15 Ur Specific [place] 1.019 (1.003-1.030) 03/19/20 12:15 Urine Protein 30 mg/dl mg/dL (Negative) 03/19/20 12:15 Urine Glucose (UA) Neg mg/dL (Negative) 03/19/20 12:15 Urine Ketones Neg mg/dL (Negative) 03/19/20 12:15 Urine Blood Mod (Negative) 03/19/20 12:15 Urine Nitrite Neg (Negative) 03/19/20 12:15 Urine Bilirubin Neg (Negative) 03/19/20 12:15 Urine Urobilinogen 2.0 mg/dL (<2.0) 03/19/20 12:15 Ur Leukocyte Esterase Lg (Negative) 03/19/20 12:15 Urine WBC (Auto) > 182.0 /HPF (0.0-6.0) H 03/19/20 12:15 Urine RBC (Auto) 50.0 /HPF (0.0-6.0) 03/19/20 12:15 U Epithel Cells (Auto) 10.0 /HPF (0-13.0) 03/19/20 12:15 Urine Bacteria (Auto) 1+ /HPF (Negative) 03/19/20 12:15 Urine WBC Clumps 2+ /HPF 03/19/20 12:15 Hyaline Casts 71 /LPF 03/19/20 12:15 Urine Mucus 1+ /HPF 03/19/20 12:15 - Medical Decision Making This 64-year-old female presented with back pain most likely secondary to muscular strain. Urinalysis was completed urinalysis does show signs of infection so we will treat for UTI. Discussed with patient follow-up with primary care physician. Vital signs are normal patient is in no acute distress Critical care attestation.: If time is entered above; I have spent that time in minutes in the direct care of this critically ill patient, excluding procedure time. ED Disposition Clinical Impression: Acute cystitis, UTI (urinary tract infection), Lower back pain Disposition: TO HOME OR SELFCARE Is pt being admited?: No Does the pt Need Aspirin: No Condition: Stable Instructions: Urinary Tract Infection in Women (ED), Low Back Strain (ED), Flank Pain (ED) Additional Instructions: Make sure to follow up with the primary care physician as discussed. Take all your medications as you've been prescribed. If you have any worsening symptoms or develop new symptoms please return to ED immediately. Prescriptions: Sulfamethoxazole/Trimethoprim [Bactrim DS TAB] 1 each PO BID #20 tablet Ketorolac [Toradol] 10 mg PO Q6H PRN #15 tablet PRN Reason: Pain Referrals: PRIMARY CARE, [Primary Care Provider] - 3-5 Days [facility] [Outside] - 3-5 Days [facility] [Outside] - 3-5 Days [facility] [Outside] - 3-5 Days [facility] [Outside] - 3-5 Days Forms: Work/School Release Form(ED) Time of Disposition: 13:48
[2020-03-19] MEDS ORDERED: KETOROLAC 30 MG/1 ML INJ IM ONE (13:36)
[2020-03-20 13:20] VITALS: BP 106/52
== END 2020-03-19 14:36 | disposition home or self-care (01) ==
LOC: ED 11:13
DX: N39.0 Urinary tract infection, site not specified (principal); M54.5 Low back pain; Z79.899 Other long term (current) drug therapy
CPT/HCPCS: 81001; 96372; 99283; J1885

== ENCOUNTER 2021-02-12 15:48 | Emergency (ER) | payer BC ==
--- NOTE | 2021-02-12 18:23 | Event Note ---
ED Screening Note ED Screening Note: lower abd pain and lower back pain for two weeks has been taking tylenol no dysuria no urinary frequency +dark urine no n/v/d no fever no fall or injury PMHx back surgery, HTN no allergies to meds This initial assessment/diagnostic orders/clinical plan/treatment(s) is/are subject to change based on patients health status, clinical progression and re- assessment by fellow clinical providers in the ED. Further treatment and workup at subsequent clinical providers discretion. Patient/guardian urged not to elope from the ED as their condition may be serious if not clinically assessed and managed. Initial orders include: labs, urine
[2021-02-12 18:52] LABS: Basophils # (Auto) 0.1 K/mm3 (0.0-0.1); Basophils % (Auto) 0.9 % (0.0-1.8); Eosinophils # (Auto) 0.3 K/mm3 (0.0-0.4); Eosinophils % (Auto) 3.2 % (0.0-4.3); Hematocrit 40.5 % (30.3-42.9); Hemoglobin 13.3 gm/dl (10.1-14.3); Lymphocytes # (Auto) 2.8 K/mm3 (1.2-5.4); Lymphocytes % (Auto) 25.8 % (13.4-35.0); Mean Corpuscular HGB Conc 33 % (30-34); Mean Corpuscular Volume 91 fl (79-97); Monocytes # (Auto) 0.5 K/mm3 (0.0-0.8); Monocytes % (Auto) 5.1 % (0.0-7.3); Red Blood Count 4.43 M/mm3 (3.65-5.03); Red Cell Distribution Width 16.9 % (13.2-15.2)
[2021-02-12 18:53] LABS: Platelet Count 267 K/mm3 (140-440)
[2021-02-12 19:15] LABS: Albumin 4.3 g/dL (3.9-5); Calcium 9.2 mg/dL (8.4-10.2)
[2021-02-12 20:12] LABS: Bacteria,Urine 2+ /HPF (Negative); Bilirubin,Urine NEG (Negative); Blood,Urine NEG (Negative); Color,Urine Yellow (Yellow); Hyaline Casts,Urine 1 /LPF; Mucus,Urine FEW /HPF; Protein,Urine <15 mg/dL mg/dL (Negative); Urobilinogen,Urine < 2.0 mg/dL (<2.0)
[2021-02-12] MEDS ORDERED: fentaNYL 100 MCG/2 ML INJ IV ONE (23:04)
[2021-02-12] MEDS ORDERED: ONDANSETRON 4 MG/2 ML INJ IV ONE (23:04)
--- NOTE | 2021-02-12 23:08 | Emergency Department Report ---
HPI - General Chief Complaint: Abdominal Pain Time Seen by Provider: 02/12/21 18:22 - HPI HPI: Room 6 Patient is a 65-year-old female present with a chief complaint of abdominal pain. The patient states for the past 2 weeks has had a constant sharp pain in the left lower quadrant radiating to the left flank. Patient denies nausea/vomiting, dysuria or hematuria. The patient states Aleve was helping initially but it no longer helps. Patient denies previous episodes of the same. ED Past Medical Hx - Past Medical History Hx Hypertension: Yes Hx GERD: Yes Hx Asthma: Yes Hx COPD: Yes Additional medical history: Chronic back pain - Surgical History Additional Surgical History: CSECTIONS - Family History Family history: no significant - Social History Smoking Status: Current Every Day Smoker (1/3 pack/day) Substance Use Type: None (Denies illicit drug use) - Medications Home Medications: Home Medications Medication Instructions Recorded Confirmed Last Taken Type Amlodipine Besylate [Norvasc] 5 mg PO DAILY 09/11/19 10/13/19 10/13/19 History Gabapentin 100 mg PO DAILY 09/11/19 10/13/19 10/13/19 History Multivit-Min/Iron/Folic Acid/K 1 tab PO DAILY 09/11/19 10/13/19 10/13/19 History [Adults Multivitamin Tablet] hydroCHLOROthiazide [HCTZ] 12.5 mg PO QDAY 09/11/19 10/13/19 10/13/19 History lisinopriL [Zestril TAB] 40 mg PO QDAY 09/11/19 10/13/19 10/13/19 History AtorvaSTATin [Lipitor] 20 mg PO QHS 10/13/19 10/13/19 10/13/19 History Ketorolac [Toradol] 10 mg PO Q6H PRN #15 tablet 03/19/20 Unknown Rx Sulfamethoxazole/Trimethoprim 1 each PO BID #20 tablet 03/19/20 Unknown Rx [Bactrim DS TAB] Naproxen 500 mg PO Q12H PRN #30 tablet 07/15/20 Unknown Rx predniSONE [Deltasone] 40 mg PO QDAY #10 tab 07/15/20 Unknown Rx traMADoL [Ultram] 50 mg PO Q6HR PRN #12 tablet 07/15/20 Unknown Rx Fluconazole [Diflucan TAB] 200 mg PO QDAY #1 tablet 02/12/21 Unknown Rx HYDROcodone/APAP 5-325 [[place] 1 - 2 each PO Q6HR PRN #10 tablet 02/13/21 Unknown Rx 5/325] levoFLOXacin [Levaquin TAB] 500 mg PO QDAY #7 tablet 02/13/21 Unknown Rx ED Review of Systems ROS: Stated complaint: ABDOMINAL PAIN/FLANK PAIN Other details as noted in HPI Constitutional: no symptoms reported Eyes: denies: eye pain ENT: denies: throat pain Respiratory: no symptoms reported Cardiovascular: denies: chest pain Endocrine: no symptoms reported Gastrointestinal: abdominal pain. denies: nausea, vomiting Genitourinary: denies: dysuria, hematuria Musculoskeletal: back pain Neurological: denies: headache Physical Exam - Physical Exam Vital Signs: Vital Signs 02/12/21 16:13 Temperature 98.4 F Pulse Rate 99 H Respiratory 17 Rate Blood Pressure 144/71 [Right] O2 Sat by Pulse 99 Oximetry Physical Exam: GENERAL: The patient is well-developed well-nourished female lying on stretcher not appearing to be in acute distress. [] HEENT: Normocephalic. Atraumatic. Extraocular motions are intact. Patient has moist mucous membranes. NECK: Supple. Trachea midline CHEST/LUNGS: Clear to auscultation. There is no respiratory distress noted. HEART/CARDIOVASCULAR: Regular. There is no tachycardia. There is no gallop rub or murmur. ABDOMEN: Abdomen is soft, tenderness to palpation in the left upper quadrant, left lower quadrant. Patient has normal bowel sounds. There is no abdominal distention. SKIN: There is no rash. There is no edema. There is no diaphoresis. NEURO: The patient is awake, alert, and oriented. The patient is cooperative. The patient has no focal neurologic deficits. The patient has normal speech MUSCULOSKELETAL: There is no evidence of acute injury. ED Course Vital Signs 02/12/21 16:13 Temperature 98.4 F Pulse Rate 99 H Respiratory 17 Rate Blood Pressure 144/71 [Right] O2 Sat by Pulse 99 Oximetry ED Medical Decision Making - Lab Data Result diagrams: 02/12/21 18:32 02/12/21 18:32 Laboratory Tests 02/12/21 02/12/21 02/12/21 18:32 18:32 Unknown WBC 10.8 RBC 4.43 Hgb 13.3 Hct 40.5 MCV 91 MCH 30 MCHC 33 RDW 16.9 H Plt Count 267 Lymph % (Auto) 25.8 [place] % (Auto) 5.1 Eos % (Auto) 3.2 Baso % (Auto) 0.9 Lymph # (Auto) 2.8 [place] # (Auto) 0.5 Eos # (Auto) 0.3 Baso # (Auto) 0.1 Seg Neutrophils % 65.0 Seg Neutrophils # 7.0 Sodium 141 Potassium 4.1 Chloride 106.0 Carbon Dioxide 24 Anion Gap 15 BUN 20 H Creatinine 1.2 Estimated GFR 55 BUN/Creatinine Ratio 17 Glucose 87 Calcium 9.2 Total Bilirubin 0.20 AST 27 ALT 23 Alkaline Phosphatase 127 Total Protein 8.0 Albumin 4.3 Albumin/Globulin Ratio 1.2 Lipase 21 Urine Color Yellow Urine Turbidity Slightly-cloudy Urine pH 5.0 Ur Specific [place] 1.021 Urine Protein <15 mg/dl Urine Glucose (UA) Neg Urine Ketones Neg Urine Blood Neg Urine Nitrite Neg Urine Bilirubin Neg Urine Urobilinogen < 2.0 Ur Leukocyte Esterase Neg Urine WBC (Auto) 6.0 Urine RBC (Auto) 1.0 U Epithel Cells (Auto) 5.0 Urine Bacteria (Auto) 2+ Hyaline Casts 1 Urine Mucus Few Urine Yeast (Budding) Few - Radiology Data Radiology results: report reviewed (CT abdomen pelvis), image reviewed (CT abdomen) [place] [id number] Cat Scan Report Signed Patient: NORMA GRANADOS MR#: [id number] : 1955 Acct:[id number] Age/Sex: 65 / F ADM Date: 02/12/21 Loc: ED Attending Dr: Ordering Physician: NABILA PIÑA MD Date of Service: 02/12/21 Procedure(s): CT abdomen pelvis w con Accession Number(s): [id number] cc: NABILA PIÑA MD CT ABDOMEN AND PELVIS WITH CONTRAST INDICATION / CLINICAL INFORMATION: Patient complains of LEFT flank and L.L.Q. abdominal pain x 2 weeks.. TECHNIQUE: Axial CT images were obtained through the abdomen and pelvis after 100 cc of Omnipaque [address] scans at this location are performed using CT dose reduction for ALARA by means of automated exposure control. COMPARISON: CT scan dated 07/15/2020 FINDINGS: LOWER CHEST: No significant abnormality. LIVER: No significant abnormality. GALLBLADDER: No significant abnormality. BILE DUCTS: No significant abnormality. PANCREAS: No significant abnormality. SPLEEN: No significant abnormality. ADRENALS: No significant abnormality. RIGHT KIDNEY / URETER: No significant abnormality. LEFT KIDNEY / URETER: No significant abnormality. STOMACH / SMALL BOWEL: No significant abnormality. COLON: No significant abnormality. APPENDIX: No significant abnormality. PERITONEUM: No free fluid. No free air. No fluid collection. LYMPH NODES: No significant adenopathy. AORTA / ARTERIES: Mild atherosclerotic calcification without acute abnormality. IVC / VEINS: No significant abnormality. URINARY BLADDER: No significant abnormality. REPRODUCTIVE ORGANS: No significant abnormality. ADDITIONAL FINDINGS: None. SKELETAL SYSTEM: Postoperative changes noted in the thoracic spine. There is facet degenerative changes of the lumbar spine. IMPRESSION: 1. No acute abnormality. There is no obstruction, inflammation, or free air. There are no abnormal collections. Signer Name: Howie Moreno MD Signed: 02/13/2021 12:20 AM Workstation Name: [id number] Transcribed By: Dictated By: Howie Moreno MD Electronically Authenticated By: Howie Moreno MD Signed Date/Time: 02/13/2119 DD/ TD/TT: - Differential Diagnosis Renal colic, pyelonephritis, diverticulitis, Critical care attestation.: If time is entered above; I have spent that time in minutes in the direct care of this critically ill patient, excluding procedure time. ED Disposition Clinical Impression: Acute abdominal pain, Candiduria, Bacteriuria Disposition: - TO HOME OR SELFCARE Is pt being admited?: No Does the pt Need Aspirin: No Condition: Stable Instructions: Abdominal Pain (ED), Abdominal Pain, Adult, [id number] Additional Instructions: Return to the emergency department should you develop worsening symptoms, inability to tolerate food or liquids, high fever or any other concerns Prescriptions: Fluconazole [Diflucan TAB] 200 mg PO QDAY #1 tablet levoFLOXacin [Levaquin TAB] 500 mg PO QDAY #7 tablet HYDROcodone/APAP 5-325 [[place] 5/325] 1 - 2 each PO Q6HR PRN #10 tablet PRN Reason: Pain Referrals: PRIMARY CARE, [Primary Care Provider] - 3-5 Days Time of Disposition: 00:33
--- NOTE | 2021-02-13 00:25 | Cat Scan Report ---
CT ABDOMEN AND PELVIS WITH CONTRAST INDICATION / CLINICAL INFORMATION: Patient complains of LEFT flank and L.L.Q. abdominal pain x 2 week s.. TECHNIQUE: Axial CT images were obtained through the abdomen and pelvis after 100 cc of Omnipaque [address] scans at this location are performed using CT dose reduction for ALARA by means of automated exposure control. COMPARISON: CT scan dated 07/15/2020 FINDINGS: LOWER CHEST: No significant abnormality. LIVER: No significant abnormality. GALLBLADDER: No significant abnormality. BILE DUCTS: No significant abnormality. PANCREAS: No significant abnormality. SPLEEN: No significant abnormality. ADRENALS: No significant abnormality. RIGHT KIDNEY / URETER: No significant abnormality. LEFT KIDNEY / URETER: No significant abnormality. STOMACH / SMALL BOWEL: No significant abnormality. COLON: No significant abnormality. APPENDIX: No significant abnormality. PERITONEUM: No free fluid. No free air. No fluid collection. LYMPH NODES: No significant adenopathy. AORTA / ARTERIES: Mild atherosclerotic calcification without acute abnormality. IVC / VEINS: No significant abnormality. URINARY BLADDER: No significant abnormality. REPRODUCTIVE ORGANS: No significant abnormality. ADDITIONAL FINDINGS: None. SKELETAL SYSTEM: Postoperative changes noted in the thoracic spine. There is facet degenerative del tor[place] es of the lumbar spine. IMPRESSION: 1. No acute abnormality. There is no obstruction, inflammation, or free air. There are no abnormal co llections. Signer Name: Howie Moreno MD Signed: 02/13/2021 12:20 AM Workstation Name: [id number]
[2021-02-13 01:26] VITALS: BP 105/52
== END 2021-02-13 01:26 | disposition home or self-care (01) ==
LOC: ED 15:48
DX: R82.71 Bacteriuria (principal); B37.49 Other urogenital candidiasis; I10 Essential (primary) hypertension; K21.9 Gastro-esophageal reflux disease without esophagitis; J44.9 Chronic obstructive pulmonary disease, unspecified; F17.200 Nicotine dependence, unspecified, uncomplicated; F12.10 Cannabis abuse, uncomplicated; Z79.899 Other long term (current) drug therapy
CPT/HCPCS: 36415; 74177; 80053; 81001; 83690; 85025; 96374; 96375; 99284; J2405; J3010; Q9967